=== PATIENT | female | born 1985 | race Caucasian/White ===

== ENCOUNTER → 2016-12-12 10:30 | Emergency (ER) | payer OTHER ==
[~2016-12-12 10:30] MED LIST: ALPRAZOLAM PO; BACTRIM DS TABL1 TA1 PO; BENZONATATE PO; CIPRO PO; DEPO-PROVER150 MG/ML; HEROIN; HYDROCODON-ACE1 EAC9 PO; MEDROL PO; NAPROSYN500 MG PO; NO MEDICATIONS; PRENATA CHEWAB1 EACH PO; PYRIDIUM PO; VICODIN 5/500 T1 TAB PO; ZITHROMAX PO
== END | disposition home or self-care (01) ==
LOC: SED 10:30
DX: O9A.211 Injury, poisoning and certain other consequences of external causes complicating pregnancy, first trimester (principal); T40.1X1A Poisoning by heroin, accidental (unintentional), initial encounter; O99.331 Smoking (tobacco) complicating pregnancy, first trimester; F17.200 Nicotine dependence, unspecified, uncomplicated; Z3A.01 Less than 8 weeks gestation of pregnancy; Z88.1 Allergy status to other antibiotic agents; Y92.511 Restaurant or cafe as the place of occurrence of the external cause
CPT/HCPCS: 99282; 99283